=== PATIENT | female | born 1950 | race Caucasian/White ===

== ENCOUNTER 2018-01-31 16:36 | Emergency (ER) | payer MEDICARE ==
[2018-01-31] MEDS ORDERED: LIDOCAINE 5% (700 MG) TRANSDERMAL ADH..PATCH TP ONE (16:59)
[2018-01-31] MEDS ORDERED: KETOROLAC TROMETHAMINE 60 MG/2 ML SDV IM ONE (16:59)
--- NOTE | 2018-01-31 17:47 | RADIOLOGY REPORT (SQ) ---
EXAM DESCRIPTION: CHEST 2 VIEWS COMPLETED DATE/TIME: 01/31/2018 5:30 pm REASON FOR STUDY: upper back pain COMPARISON: None. EXAM PARAMETERS: NUMBER OF VIEWS: two views TECHNIQUE: Digital Frontal and Lateral radiographic views of the chest acquired. RADIATION DOSE: NA LIMITATIONS: none FINDINGS: LUNGS AND PLEURA: No opacities, masses or pneumothorax. No pleural effusion. MEDIASTINUM AND HILAR STRUCTURES: No masses or contour abnormalities. HEART AND VASCULAR STRUCTURES: Heart normal size. No evidence for failure. BONES: No acute findings. HARDWARE: None in the chest. OTHER: No other significant finding. IMPRESSION: NO ACUTE RADIOGRAPHIC FINDING IN THE CHEST. TECHNICAL DOCUMENTATION: JOB ID: [id number] [employer]- All Rights Reserved Reading location - IP/workstation name: [email or web address]
--- NOTE | 2018-01-31 17:48 | RADIOLOGY REPORT (SQ) ---
EXAM DESCRIPTION: T SPINE AP/LAT COMPLETED DATE/TIME: 01/31/2018 5:30 pm REASON FOR STUDY: upper back pian COMPARISON: None. NUMBER OF VIEWS: Two views. TECHNIQUE: AP and lateral radiographic images acquired of the thoracic spine. LIMITATIONS: None. FINDINGS: MINERALIZATION: Normal. ALIGNMENT: Normal. No scoliosis. VERTEBRAE: No fracture or bone lesion. Maintained height, normal segmentation. DISCS: Multilevel disc space narrowing with osteophytes. HARDWARE: None in the spine. MEDIASTINUM AND SOFT TISSUES: Normal heart size and aortic contour. No soft tissue abnormality. VISUALIZED LUNG OSORIO: Clear. OTHER: No other significant finding. IMPRESSION: SPONDYLOSIS WITHOUT BONE LESION OR FRACTURE. TECHNICAL DOCUMENTATION: JOB ID: [id number] [employer]- All Rights Reserved Reading location - IP/workstation name: [email or web address]
--- NOTE | 2018-01-31 18:14 | ER Document Report ---
ED General - General Chief Complaint: Back Pain Stated Complaint: BACK PAIN, UPPER RIB PAIN Time Seen by Provider: 01/31/18 16:58 TRAVEL OUTSIDE OF THE [place] IN LAST 30 DAYS: No - HPI Patient complains to provider of: Mid upper back pain Notes: Patient coming in for a few days of mid upper back pain after moving a couch. Patient has lightheadedness fevers chills nausea vomiting diarrhea denies any other trauma. Patient states hurts when she moves. - Related Data Allergies/Adverse Reactions: No Known Allergies Allergy (Unverified 01/31/18 16:37) Past Medical History - Social History Smoking Status: Never Smoker Frequency of alcohol use: None Drug Abuse: None Family History: Reviewed & Not Pertinent Patient has suicidal ideation: No Patient has homicidal ideation: No - Past Medical History Cardiac Medical History: Reports: Hx Hypertension Renal/ Medical History: Denies: Hx Peritoneal Dialysis Review of Systems - Review of Systems Constitutional: No symptoms reported EENT: No symptoms reported Cardiovascular: No symptoms reported Respiratory: No symptoms reported Gastrointestinal: No symptoms reported Genitourinary: No symptoms reported Female Genitourinary: No symptoms reported Musculoskeletal: Back pain - Mid upper back pain Skin: No symptoms reported Hematologic/Lymphatic: No symptoms reported Neurological/Psychological: No symptoms reported Physical Exam - Vital signs Vitals: Temp Pulse Resp BP Pulse Ox 99.3 F 78 16 145/76 H 95 01/31/18 16:42 01/31/18 16:42 01/31/18 16:42 01/31/18 16:42 01/31/18 16:42 Interpretation: Normal - General General appearance: Appears well, Alert - HEENT Head: Normocephalic, Atraumatic Eyes: Normal Pupils: PERRL - Respiratory Respiratory status: No respiratory distress Chest status: Nontender Breath sounds: Normal Chest palpation: Normal - Cardiovascular Rhythm: Regular Heart sounds: Normal auscultation Murmur: No - Abdominal Inspection: Normal Distension: No distension Bowel sounds: Normal Tenderness: Nontender Organomegaly: No organomegaly - Back Back: Normal, Tender - Midline tenderness along T65 and 4 reproduces patient's pain - Extremities General upper extremity: Normal inspection, Nontender, Normal color, Normal ROM , Normal temperature General lower extremity: Normal inspection, Nontender, Normal color, Normal ROM , Normal temperature, Normal weight bearing. No: Jamee's sign - Neurological Neuro grossly intact: Yes Cognition: Normal Orientation: AAOx4 Maria E Coma Scale Eye Opening: Spontaneous [place] Coma Scale Verbal: Oriented [place] Coma Scale Motor: Obeys Commands Maria E Coma Scale Total: 15 Speech: Normal Motor strength normal: LUE, RUE, LLE, RLE Sensory: Normal - Psychological Associated symptoms: Normal affect, Normal mood - Skin Skin Temperature: Warm Skin Moisture: Dry Skin Color: Normal Course - Re-evaluation Re-evalutation: 01/31/18 18:20 The patient presents with low back pain without signs of spinal cord compression , cauda equina syndrome, infection, aneurysm, or other serious etiology. The patient is neurologically intact. Given the extremely low risk of these diagnoses further testing and evaluation for these possibilities does not appear to be indicated at this time. The patient has been instructed to return if the symptoms worsen or change in any way. Chest x-ray shows no mediastinal widening no signs for any significant acute chest pathology. Patient will be discharged home with Ultram for pain or recommend Tylenol Motrin. - Vital Signs Vital signs: Temp Pulse Resp BP Pulse Ox 99.3 F 78 16 145/76 H 95 01/31/18 16:42 01/31/18 16:42 01/31/18 16:42 01/31/18 16:42 01/31/18 16:42 Discharge - Discharge Clinical Impression: Upper back pain Condition: Good Disposition: HOME, SELF-CARE Instructions: Ice Packs ([facility]), Low Back Pain ([facility]), Oral Narcotic Medication ( [facility]), Stretching Exercises for the Back ([facility]), Warm Packs ([facility]) Additional Instructions: Your x-ray does show some arthritic changes any back however no acute pathology. More likely to have muscle strain from moving a couch. Please follow-up with your primary care physician take medications as prescribed would recommend taking Tylenol Motrin wheezing warm packs and ice packs for pain control as well. Prescriptions: Tramadol HCl [Ultram 50 mg Tablet] 50 mg PO ASDIR PRN #20 tablet PRN Reason: Forms: Return to Work
[2018-01-31 18:35] VITALS: BP 150/81
== END 2018-01-31 18:36 | disposition home or self-care (01) ==
LOC: ER 16:36
DX: M54.89 Other dorsalgia (principal); M54.5 Low back pain; R07.81 Pleurodynia; R42 Dizziness and giddiness; R50.9 Fever, unspecified; R11.2 Nausea with vomiting, unspecified; R19.7 Diarrhea, unspecified; I10 Essential (primary) hypertension
CPT/HCPCS: 99283; 96372; 71046; 72070; J1885

== ENCOUNTER 2018-12-12 18:09 | Emergency (ER) | payer MEDICARE ==
--- NOTE | 2018-12-12 20:15 | ER Document Report ---
ED Medical Screen (RME) - General Chief Complaint: Weakness Stated Complaint: FATIGUE Time Seen by Provider: 12/12/18 20:09 Notes: 68-year-old female with chief complaint of being ill for about 6 days now, she states initially she just had a cough but then about 1-2 days ago she started having chills and sweats. She is also been having intermittent pain in her chest even separately from cough for the past few days. She was seen in urgent care, referred here. Past medical history of hypertension and depression, medicated. Non-smoker. Denies history of MO or cardiac history. Did not have a flu shot. TRAVEL OUTSIDE OF THE [place] IN LAST 30 DAYS: No - Related Data Allergies/Adverse Reactions: No Known Allergies Allergy (Unverified 01/31/18 16:37) Past Medical History - Social History Chew tobacco use (# tins/day): No Frequency of alcohol use: None Drug Abuse: None - Past Medical History Cardiac Medical History: Reports: Hx Hypertension Renal/ Medical History: Denies: Hx Peritoneal Dialysis Physical Exam - Vital signs Vitals: Temp Pulse Resp BP Pulse Ox 97.5 F 56 L 16 130/79 H 97 12/12/18 18:22 12/12/18 18:22 12/12/18 18:22 12/12/18 18:22 12/12/18 18:22 - Respiratory Respiratory status: No respiratory distress. No: Labored, Tachypnea Breath sounds: Nonproductive cough - Congested sounding cough intermittently Course - Vital Signs Vital signs: Temp Pulse Resp BP Pulse Ox 97.5 F 56 L 16 130/79 H 97 12/12/18 18:22 12/12/18 18:22 12/12/18 18:22 12/12/18 18:22 12/12/18 18:22
--- NOTE | 2018-12-12 20:44 | RADIOLOGY REPORT (SQ) ---
EXAM DESCRIPTION: XR CHEST 1 VIEW COMPLETED DATE/TME: 12/12/2018 20:13 CLINICAL HISTORY: 68 years, Female, chest pain, cough, chills COMPARISON: EXAM DESCRIPTION: CLINICAL HISTORY: chest pain, cough, chills COMPARISON: None. FINDINGS: Single view of the chest is submitted. Cardiac silhouette is normal. No focal parenchymal or pleural disease. No acute bony abnormality. There is no significant pulmonary vascular engorgement. IMPRESSION: No evidence of acute cardiopulmonary disease. NUMBER OF VIEWS: TECHNIQUE: LIMITATIONS: None. FINDINGS: IMPRESSION: copyright 2010 [employer]- All Rights Reserved
[2018-12-12 21:16] LABS: ABSOLUTE BASOPHILS # (AUTO) 0.1 10^3/uL (0.0-0.2); ABSOLUTE EOSINOPHILS # (AUTO) 0.1 10^3/uL (0.0-0.6); ABSOLUTE LYMPHOCYTES (AUTO) 3.1 10^3/uL (0.5-4.7); ABSOLUTE MONOCYTES (AUTO) 0.7 10^3/uL (0.1-1.4); ABSOLUTE NEUT (AUTO) 4.6 10^3/uL (1.7-8.2); BASOPHILS % (AUTO) 0.7 % (0-2); EOSINOPHILS % (AUTO) 1.5 % (0-6); HEMATOCRIT 41.8 % (36.0-47.0); HEMOGLOBIN 14.3 g/dL (12.0-15.5); LYMPHOCYTES % (AUTO) 36.1 % (13-45); MEAN CORPUSCULAR HEMOGLOBIN 29.4 pg (27.0-33.4); MEAN CORPUSCULAR HGB CONC 34.2 g/dL (32.0-36.0); MEAN CORPUSCULAR VOLUME 86 fl (80-97); MONOCYTES % (AUTO) 7.8 % (3-13); PLATELET COUNT 258 10^3/uL (150-450); RED BLOOD COUNT 4.86 10^6/uL (3.72-5.28); RED CELL DISTRIBUTION WIDTH 14.2 % (11.5-14.0); SEGMENTED NEUTROPHILS % (AUTO) 53.9 % (42-78); TOTAL CELLS COUNTED % (AUTO) 100 %; WHITE BLOOD COUNT 8.5 10^3/uL (4.0-10.5)
[2018-12-12 21:18] LABS: APPEARANCE,URINE CLOUDY; BILIRUBIN,URINE NEGATIVE (NEGATIVE); COLOR,URINE AMBER; GLUCOSE, URINE NEGATIVE (NEGATIVE); KETONES,URINE TRACE mg/dL (NEGATIVE); LEUKOCYTE ESTERASE,URINE LARGE (NEGATIVE); NITRITE,URINE NEGATIVE (NEGATIVE); PROTEIN,URINE NEGATIVE (NEGATIVE); URINE SPECIFIC GRAVITY 1.024
[2018-12-12 21:37] LABS: ALANINE AMINOTRANSFERASE 17 U/L (9-52); ALBUMIN 4.7 g/dL (3.5-5.0); ALKALINE PHOSPHATASE 66 U/L (38-126); ANION GAP 14 (5-19); ASPARTATE AMINO TRANSFERASE 29 U/L (14-36); BILIRUBIN,DIRECT 0.3 mg/dL (0.0-0.4); BILIRUBIN,TOTAL 0.9 mg/dL (0.2-1.3); BLOOD UREA NITROGEN 16 mg/dL (7-20); CALCIUM 10.3 mg/dL (8.4-10.2); CARBON DIOXIDE 34 mmol/L (22-30); CHLORIDE 95 mmol/L (98-107); GLUCOSE 99 mg/dL (75-110); POTASSIUM 3.3 mmol/L (3.6-5.0); SODIUM 142.6 mmol/L (137-145); TOTAL PROTEIN 8.6 g/dL (6.3-8.2)
[2018-12-12 21:47] LABS: A TYPE INFLUENZA AG NEGATIVE (NEGATIVE); B INFLUENZA AG NEGATIVE (NEGATIVE)
--- NOTE | 2018-12-12 23:23 | EKG REPORT ---
SEVERITY:- NORMAL ECG - SINUS RHYTHM : Confirmed by: Vanessa Matthews MD 12-Dec-2018 23:22:35
--- NOTE | 2018-12-12 23:53 | ER Document Report ---
ED General - General Chief Complaint: Weakness Stated Complaint: FATIGUE Time Seen by Provider: 12/12/18 20:09 TRAVEL OUTSIDE OF THE [place] IN LAST 30 DAYS: No - HPI Notes: Patient presents to the emergency department for evaluation. She states over the last week she has felt fatigued, has had a cough. She is had subjective fevers. She denies any nausea or vomiting. She describes some intermittent ch est tightness. She states sometimes it happens with exertion but can happen at rest. It lasts only a few minutes. Upon further reflection she states it does feel similar to when she has had bronchitis in the past. Normal urination, no diarrhea. - Related Data Allergies/Adverse Reactions: No Known Allergies Allergy (Unverified 01/31/18 16:37) Past Medical History - General Information source: Patient - Social History Smoking Status: Never Smoker Chew tobacco use (# tins/day): No Frequency of alcohol use: None Drug Abuse: None Family History: Reviewed & Not Pertinent Patient has suicidal ideation: No Patient has homicidal ideation: No - Past Medical History Cardiac Medical History: Reports: Hx Hypertension Renal/ Medical History: Denies: Hx Peritoneal Dialysis Review of Systems - Review of Systems Constitutional: Fever, Malaise EENT: Nose congestion Cardiovascular: Chest pain Respiratory: Cough Gastrointestinal: No symptoms reported Genitourinary: No symptoms reported Musculoskeletal: No symptoms reported Skin: No symptoms reported Hematologic/Lymphatic: No symptoms reported Neurological/Psychological: No symptoms reported Physical Exam - Vital signs Vitals: Temp Pulse Resp BP Pulse Ox 97.5 F 56 L 16 130/79 H 97 12/12/18 18:22 12/12/18 18:22 12/12/18 18:22 12/12/18 18:22 12/12/18 18:22 Notes: Mildly bradycardic but otherwise unremarkable - Notes Notes: Vital signs reviewed, please refer to chart. Patient is normocephalic, atraumatic. Pupils equal round, reactive to light. Neck is supple without meningismus. Heart is regular rate and rhythm. Lungs are clear to auscultation bilaterally. Abdomen is soft, nontender, normoactive bowel sounds throughout. Extremities without cyanosis, clubbing, edema. Peripheral pulses are equal. Skin is warm and dry. Patient is awake, alert, neurological exam is nonfocal. Course - Re-evaluation Re-evalutation: 12/12/18 23:56 Patient presents to the emergency department for evaluation of chest pain. She denies any chest pain while she is here. She is feeling fatigued. Her laboratory medications were largely unremarkable. Chest x-ray revealed no acute abnormalities. Her influenza swab was negative. At this point I do not have a clear etiology of her chest pain or fatigue, but I do strongly suspect an acute bronchitis. We did discuss her chest pain and the possibility of coronary artery disease. She does have some risk factors. I strongly suggest she follow-up with her primary care physician for further evaluation as an out patient. She is amenable to this plan. She is to return to ED if worsening or new concerning symptoms of any sort. - Vital Signs Vital signs: Temp Pulse Resp BP Pulse Ox 97.5 F 56 L 11 L 148/78 H 99 12/12/18 18:22 12/12/18 18:22 12/12/18 23:01 12/12/18 23:00 12/12/18 23:01 - Laboratory Result Diagrams: 12/12/18 20:48 12/12/18 20:48 Laboratory results interpreted by me: 12/12/18 12/12/18 12/12/18 20:48 20:48 20:48 RDW 14.2 H Potassium 3.3 L Chloride 95 L Carbon Dioxide 34 H Calcium 10.3 H Total Protein 8.6 H Urine Ketones TRACE H Urine Urobilinogen 2.0 H Ur Leukocyte Esterase LARGE H Urine Ascorbic Acid 40 H - Diagnostic Test Radiology reviewed: Reports reviewed - EKG Interpretation by Me Additional EKG results interpreted by me: 12/12/18 23:57 Sinus bradycardia with a rate of 56 bpm. normal axis and intervals, no acute ST changes concerning for ischemia or infarction. Discharge - Discharge Clinical Impression: Bronchitis, Fatigue, Chest pain Condition: Good Disposition: HOME, SELF-CARE Instructions: Chest Pain of Unclear Cause ([facility]), Bronchitis ([facility]) Additional Instructions: Follow-up with your doctor this week. Rest. Return to the emergency department for worsening or new concerning symptoms of any sort.
[2018-12-13 00:17] VITALS: BP 147/75
== END 2018-12-13 00:17 | disposition home or self-care (01) ==
LOC: ER 18:09
DX: J40 Bronchitis, not specified as acute or chronic (principal); R07.9 Chest pain, unspecified; R53.83 Other fatigue; R53.1 Weakness; R05 Cough; R50.9 Fever, unspecified; R53.81 Other malaise
CPT/HCPCS: 36415; 71045; 80053; 81001; 84484; 85025; 87086; 87804; 93005; 93010; 99285